=== PATIENT | female | born 1955 | race Caucasian/White ===

== ENCOUNTER 2022-08-09 06:55 | Day surgery (SDC) | payer OTHER ==
[~2022-08-09] VITALS: Ht 167.6 cm; Wt 86.4 kg
[~2022-08-09 06:55] MED LIST: HYDR25TA2 PO; LORA10TA7 PO; LOSA-382 PO; PANT40TA54 PO; SODIUM CHLORIDE 0.9% 1,000 ML IV ONE
[2022-08-09] MEDS ORDERED: PROPOFOL 1% 20 ML VIAL IVP ONE (06:56)
[2022-08-09 07:40] LABS: COVID AG,FIA SOURCE NASAL SWAB
[2022-08-09] MEDS ORDERED: SODIUM CHLORIDE 0.9% 1,000 ML ONE (07:42)
[2022-08-09] MEDS ORDERED: SODIUM CHLORIDE 0.9% 1,000 ML IV ONE (09:00)
== END 2022-08-09 09:55 | disposition home or self-care (01) ==
LOC: SURGERY 06:55
PROVIDERS: ATTEND Internal Medicine Gastroenterology
DX: K29.50 Unspecified chronic gastritis without bleeding (principal); I10 Essential (primary) hypertension; K59.00 Constipation, unspecified; Z79.899 Other long term (current) drug therapy; Z98.890 Other specified postprocedural states; Z86.19 Personal history of other infectious and parasitic diseases; Z20.822 Contact with and (suspected) exposure to COVID-19
CPT/HCPCS: 43239; 87426; C9803; C1769; J2704; J7030